=== PATIENT | male | born 1945 | race Caucasian/White ===

== ENCOUNTER 2025-01-29 09:41 | Day surgery (SDC) | payer MEDICARE, SELFPAY ==
[2025-01-27 17:34] VITALS: BMI 25.2
[2025-01-29 10:36] VITALS: BP 153/83; PULSE 78; RESP 18; TEMP 36.7; O2SAT 98
[2025-01-29] MEDS: LACTATED RINGERS 1000ML 1,000 ML 50 ML IV (10:41)
--- NOTE | 2025-01-29 11:24 | P.HP_ITS ---
History of Present Illness *Admission Date: 01/29/25 *Reason for visit:: Screening for colon cancer *History of present illness: Mr. Ding is a 79-year-old gentleman who is here for screening for colon cancer. His last colonoscopy was 10 years ago. The examination is deemed medically necessary for screening colonoscopy. The patient has been seen, interviewed and examined prior to the procedure by both myself and the anesthesia provider. [facility] Disclaimer: The information contained in this section may have been updated after the patient was seen, as this information can be updated by other users. Medical History (Updated 01/29/25 @ 11:30 by Archie Ramsey II, MD) Retina disorder Surgical History No significant past surgical history Family History Other No significant family history Social History Smoking Status: Never smoker alcohol intake: never current occupational status: retired Travel in the last 8 weeks?: None Have you lived/traveled outside [place] in past 30 days?: No Contact w/someone who lives/traveled outside [place] past 30 days?: No Exposure to someone with infectious disease in past 14 days?: No Do you have a fever (greater than 100.4 F or 38 C)?: No Have you tested positive for COVID-19?: No Exposed to someone with COVID-19 in past 14 days?: No Do you have a sore throat?: No Do you have a cough?: No Do you have any weakness?: No Do you have any diarrhea?: No Are you experiencing any unusual bleeding?: No Do you have any muscle aches/pain?: No Do you have any abdominal pain?: No Are you experiencing loss of taste or smell?: No Review of Systems Review of Systems Review of systems (narrative): Negative *Cardiovascular Comments: Negative *Gastrointestinal Comments: Negative *Genitourinary Comments: Negative *Musculoskeletal Comments: Negative *Neurologic Comments: Negative Meds Home Medications and Allergies Home Medications ?Medication ?Instructions ?Recorded ?Confirmed ?Type aspirin 81 mg capsule 81 mg PO DAILY 01/27/25 01/29/25 History cetirizine 10 mg capsule (Zyrtec) 10 mg PO DAILY PRN allergies 01/27/25 01/29/25 History New Prescriptions to Start Prescriptions: Allergies Allergy/AdvReac Type Severity Reaction Status Date / Time No Known Allergies Allergy Verified 01/29/25 10:29 Exam Data for Last 24 hours Vital signs and Labs for Last 24 Hours: Temp Pulse Resp BP Pulse Ox O2 Del Method 98.0 F 78 18 153/83 H 98 Room Air 01/29/25 10:36 01/29/25 10:36 01/29/25 10:36 01/29/25 10:36 01/29/25 10:36 01/29/25 10:36 I & O for Last 24 hours: Intake & Output 01/26/25 01/27/25 01/28/25 01/29/25 23:59 23:59 23:59 23:59 Weight 176 lb *Routine HEENT Exam Head: Present normocephalic Eye: Present EOMI and PERRL ENT: Present mucous membranes moist *Routine Neck Exam Neck: Present supple *Routine Respiratory Exam Respiratory: Present CTA bilaterally *Routine Cardiovascular Exam Cardiovascular: Present RRR *Routine Abdominal Exam Abdominal: Present soft and normoactive bowel sounds; Absent tenderness *Routine Rectal Exam Rectal:: deferred *Routine Genitalia Exam Genitalia:: deferred *Routine Extremities Exam Extremities: Absent cyanosis, clubbing or edema *Routine Skin Exam Skin: Present warm; Absent rash *Routine Neurological Exam Neurological: Present alert and oriented X3 Assessment and Plan *Assessment and plan (1) Screening for colon cancer: Status: Acute Category: Medical Code(s): Z12.11 - Encounter for screening for malignant neoplasm of colon Plan A/P: 1. Screening for colon cancer is the preprocedural diagnosis. The patient will be anesthetized/sedated using MAC sedation. The patient has been seen and examined. Cardiac and lung assessment prior to the examination is stable. Proceed with planned screening colonoscopy.
[2025-01-29 11:28] VITALS: O2SAT 96
--- NOTE | 2025-01-29 11:31 | P.PCN_ITS ---
[facility] Procedure Note Date: 01/29/25 Time: 11:43 Procedure Note:: Colonoscopy Procedure Report: Colonoscopy Endoscopist: Archie Ramsey II, MD Referring physician: Orville Booth MD, [address] [facility] [place] [address] Date of Procedure: January 29, 2025 Equipment: Olympus 190 variable stiffness pediatric colonoscope Sedation: MAC sedation Indication: Mr. Ding is a 79-year-old gentleman who is here for screening colonoscopy. His last colonoscopy 10 years ago was normal. He reports no abdominal pain, weight loss, change in his bowel habits or rectal bleeding. He reports no family history of colon cancer. Procedure: Prior to the procedure, a history and physical exam was performed, and patient's medications and allergies were reviewed. The risks, benefits and alternatives of the sedation and procedure were discussed with the patient. All questions were answered and informed consent was obtained. The patient was brought to the procedure room. Patient identification and proposed procedure were verified by the physician and the nurse. The patient was placed in a left lateral decubitus position and the scope was passed under direct vision. Throughout the procedure, the patient's blood pressure, pulse, and oxygen saturations were monitored continuously. The colonoscopy was accomplished without difficulty. The patient tolerated the procedure well. Findings: On digital rectal examination there was normal rectal tone. There were no external hemorrhoids. The prostate was 2+, mildly firm but symmetric without nodules. The colonoscope was introduced through the anal canal to the rectum and advanced to the cecum. The ileocecal valve and appendiceal orifice were identified. The scope was advanced a short distance into the ileum which appeared grossly normal. The scope was then withdrawn into the colon. The cecum, ascending and transverse colon and mucosa were grossly normal. There were scattered extensive [place] diverticuli throughout the descending and sigmoid colon (LEFT colon). The rectum itself was normal. Upon retroflexion within the rectum there were grade 2 internal hemorrhoids. The preparation was excellent throughout with [place] Preparation Score of 9. The cecal time was 12 minutes. Impression: 1. Extensive left-sided diverticulosis 2. Grade 2 internal hemorrhoids Plan: The patient will not require any further preventive/surveillance colonoscopy. I would encourage psyllium bulking fiber supplementation on a long-term daily maintenance basis.
[2025-01-29 11:47] VITALS: BP 91/52; PULSE 71; RESP 18; TEMP 36.2; O2SAT 94
[2025-01-29 11:57] VITALS: BP 94/59; PULSE 71; RESP 18; O2SAT 94
[2025-01-29 12:07] VITALS: BP 107/66; PULSE 66; RESP 18; O2SAT 96
[2025-01-29 12:27] VITALS: BP 125/70; PULSE 65; RESP 17; O2SAT 98
== END 2025-01-29 12:30 | disposition home or self-care (01) ==
PROVIDERS: PCP Internal Medicine; Visit Provider Internal Medicine Gastroenterology
PROC: 0DJD8ZZ Inspection of Lower Intestinal Tract, Via Natural or Artificial Opening Endoscopic (ICD-10-PCS; CPT 45378; principal; 2025-01-29 11:30)
DX: Z12.11 Encounter for screening for malignant neoplasm of colon (principal); K57.30 Diverticulosis of large intestine without perforation or abscess without bleeding; K64.1 Second degree hemorrhoids
CPT/HCPCS: G0121; J7120